=== PATIENT | male | born 1985 | race Caucasian/White ===

== ENCOUNTER 2019-10-29 10:55 | Emergency (ER) | payer SELFPAY ==
[~2019-10-29] VITALS: Ht 180.3 cm; Wt 115.6 kg
[~2019-10-29 10:55] MED LIST: NO HOME MEDS
[2019-10-29] MEDS ORDERED: HYDROcodone/acetaminophen 10/325mg tab PO ONE (11:40)
[2019-10-29] MEDS ORDERED: orphenadrine citrate 60mg/2ml inj. IM ONE (11:40)
[2019-10-29] MEDS ORDERED: triamcinolone acetonide 40mg/ml inj IM ONE (11:40)
[2019-10-29] MEDS ORDERED: ketorolac trometh inj. 60 MG/2 ML VIAL IM ONE (11:40)
[2019-10-29] MEDS ORDERED: HYDR-4353 PO (11:45)
[2019-10-29] MEDS ORDERED: ORPH100T2 PO (11:45)
--- NOTE | 2019-10-29 11:45 | NUR ---
Pt is allergic to Toradol, so that was not given. Dr Grant aware of non-admin d/t allergy.
[2019-10-29 12:02] VITALS: BP 155/100
== END 2019-10-29 12:05 | disposition home or self-care (01) ==
LOC: ER 10:55
DX: G89.29 Other chronic pain (principal); M54.5 Low back pain; Z88.8 Allergy status to other drugs, medicaments and biological substances; Z79.899 Other long term (current) drug therapy
CPT/HCPCS: 96372; 99284; J2360; J3301